=== PATIENT | male | born 1985 | race Caucasian/White ===

== ENCOUNTER 2022-07-17 15:34 | Emergency (ER) | payer OTHER, SELFPAY ==
[2022-07-17 15:44] VITALS: BP 137/69; PULSE 110; RESP 20; TEMP 36.4; O2SAT 97
--- NOTE | 2022-07-17 16:34 | ED.HA ---
HPI - Headache General Chief Complaint: Headache Stated Complaint: Headache Time Seen by Provider: 07/17/22 16:25 Source: patient, RN notes reviewed and old records reviewed Mode of arrival: ambulatory Limitations: no limitations History of Present Illness HPI Narrative: 37 year old male who presents to [facility] care with complaints of migraine headache recurring this past week with increase intensity this past hour. He reports that he has pain to his bilateral islam areas with throbbing and pressure and to base of his skull, denies any nausea or any photosensitivity. Patient reports that he has taken Imitrex without relief. Patient states that he has seen neurologist for his headache reports that it is not worse headache of his life. Patient states that he has a nerve problem in the back of his neck MD elicited complaint: migraine Pertinent past history: migraines Pain scale (0-10): 8 Treatments prior to arrival: acetaminophen, ibuprofen, migraine medication and other (caffeine) Related Data Home Medications Medication Instructions Recorded Confirmed atenolol 25 mg tablet 25 mg PO BID 07/17/22 07/17/22 docusate sodium 100 mg capsule See Rx Instructions .Route .COMPLEX 07/17/22 07/17/22 lisdexamfetamine 70 mg capsule 70 mg PO DAILY 07/17/22 07/17/22 (Vyvanse) lisinopril 10 mg tablet 10 mg PO DAILY 07/17/22 07/17/22 sumatriptan succinate 100 mg tablet See Rx Instructions .Route .COMPLEX 07/17/22 07/17/22 Allergies Allergy/AdvReac Type Severity Reaction Status Date / Time No Known Allergies Allergy Verified 07/17/22 15:54 Review of Systems Review of Systems: CONSTITUTIONAL: Denies fever, chills, or sweats. EYES: Denies visual changes, redness, or discharge. ENT: Denies rhinorrhea, congestion, sore throat, or otalgia. CARDIOVASCULAR: Denies chest pain, palpitations, or edema. RESPIRATORY: Denies cough or dyspnea. GASTROINTESTINAL: Denies abdominal pain, nausea, vomiting, or diarrhea. GENITOURINARY: Denies dysuria or hematuria. SKIN: Denies rash or itching. MUSCULOSKELETAL: Denies back pain, joint pain, or myalgia. NEUROLOGIC: Positive headache,denies any numbness, or weakness. PSYCHIATRIC: Reports history of anxiety or depression. All systems reviewed & are unremarkable except as noted in HPI and below PMFSH Past Medical History Medical History ADHD (attention deficit hyperactivity disorder) Anxiety and depression Borderline personality disorder Hypertension Migraine Social History Social History Living arrangements: with family Gender identity (if verbalized by the patient): Male Comments At time of signature, agree with nursing past medical, surgical, social and family history. There is no relevant family history pertinent to the presenting complaint Exam Narrative: GENERAL: Well-appearing, well-nourished, and in no acute distress. HEAD: Normocephalic, atraumatic. EYES: PERRLA and EOMI.no nystagmus ENT: Nares clear, no rhinorrhea or epistaxis. Mucous membranes moist.TN's normal throat pink with no swelling NECK: Supple.no lymphadenopathy CHEST: Clear to auscultation. No respiratory distress.SAO2 97% on room air HEART: Regular rate and rhythm. No murmur heard. Normal peripheral pulses. ABDOMEN: Soft, nontender, nondistended, normal active bowel sounds. EXTREMITIES: Normal range of motion. No edema. SKIN: Warm, dry, no rash. NEURO: No focal deficits. Alert and oriented x3.reports pain to bilateral temples and base of skull with no photophobia or nausea, cranial nerves intact, gait steady Course Course Emergency Course: Patient is aware of diagnosis, understands and agrees to treatment plan.? Anticipatory guidance given.? Patient agrees to follow-up as directed and is aware of reasons to seek care at the emergency department. Portions of this record may have been created with voice recognition
[2022-07-17] MEDS: KETOROLAC (*BKC) 60 MG/2 ML VIAL IM (16:47)
== END 2022-07-17 17:15 | disposition home or self-care (01) ==
PROVIDERS: Emergency Provider Registered Nurse; PCP Family Medicine
DX: G43.909 Migraine, unspecified, not intractable, without status migrainosus (principal); I10 Essential (primary) hypertension; F90.9 Attention-deficit hyperactivity disorder, unspecified type
CPT/HCPCS: 96372; 99213; G0463; J1885

== ENCOUNTER 2024-02-16 16:46 | Emergency (ER) | payer OTHER, SELFPAY ==
[2024-02-16 17:15] VITALS: BP 124/81; PULSE 86; RESP 16; TEMP 36.6; O2SAT 100
--- NOTE | 2024-02-16 18:30 | ED_ITS ---
HPI - URI/Sore Throat General Chief Complaint: Upper Respiratory Infection Stated Complaint: Body Aches/Shortness of Breath/Cough/Sore Throat Time Seen by Provider: 02/16/24 18:15 Source: patient Mode of arrival: ambulatory Limitations: no limitations History of Present Illness HPI Narrative: 39 year old male [facility] to [facility] care with complaints of 2 day duration MD elicited complaint: cough and sore throat Related Data Home Medications Medication Instructions Recorded Confirmed atenolol 25 mg tablet 25 mg PO BID 07/17/22 07/17/22 docusate sodium 100 mg capsule See Rx Instructions .Route .COMPLEX 07/17/22 07/17/22 lisdexamfetamine 70 mg capsule 70 mg PO DAILY 07/17/22 07/17/22 (Vyvanse) lisinopril 10 mg tablet 10 mg PO DAILY 07/17/22 07/17/22 sumatriptan succinate 100 mg tablet See Rx Instructions .Route .COMPLEX 07/17/22 07/17/22 bupropion HCl 100 mg tablet mg PO 02/16/24 clonazepam 0.5 mg tablet mg 02/16/24 ergocalciferol (vitamin D2) 1,250 02/16/24 mcg (50,000 unit) capsule naltrexone 50 mg tablet mg 02/16/24 serdexmethylphenidate 39.2 02/16/24 mg-dexmethylphenidate 7.8 mg capsule (Azstarys) sildenafil 100 mg tablet mg 02/16/24 topiramate 50 mg tablet mg 02/16/24 Allergies Allergy/AdvReac Type Severity Reaction Status Date / Time No Known Allergies Allergy Verified 02/16/24 17:45 Review of Systems Review of Systems: CONSTITUTIONAL: Denies malaise, chills, sweats, or fever. EYES: Denies visual changes, redness, or discharge. ENT: Reports rhinorrhea, congestion, sinus pain, otalgia and sore throat. CARDIOVASCULAR: Denies chest pain, palpitations, or edema. RESPIRATORY: Reports cough.? Denies dyspnea. GASTROINTESTINAL: Denies abdominal pain, nausea, vomiting, diarrhea SKIN: Denies rash or itching. MUSCULOSKELETAL: Denies myalgia. NEUROLOGIC: Denies headache. All systems reviewed & are unremarkable except as noted in HPI and below PMFSH Past Medical History Medical History ADHD (attention deficit hyperactivity disorder) Anxiety and depression Borderline personality disorder Hypertension Migraine Social History Social History Living arrangements: with family Gender identity (if verbalized by the patient): Male Comments At time of signature, agree with nursing past medical, surgical, social and family history. There is no relevant family history pertinent to the presenting complaint Exam Narrative: GENERAL: Well-appearing, well-nourished, and in no acute distress. HEAD: Normocephalic EYES: PERRLA, conjunctivae clear ENT: Nares clear, turbinates edematous and erythematous, clear discharge. Mucous membranes moist. TM pearly qureshi with dull light reflex bilaterally; no tragal tenderness. Oropharynx erythematous without lesions. Tonsils not enlarged and without exudate, no drooling, no hoarseness, no trismus, uvula midline. NECK: Supple. No lymphadenopathy CHEST: Clear to auscultation, breath sounds equal. No wheezing, rhonchi, rales, or stridor. No respiratory distress, speaks in full sentences. HEART: Regular rate and rhythm. No murmur heard. SKIN: Warm, dry, no rash. NEURO: Alert and oriented x3. PSYCH: Normal mood and affect Course Course Emergency Course: Patient is aware of diagnosis, understands and agrees to treatment plan.? Anticipatory guidance given.? Patient agrees to follow-up as directed and is aware of reasons to seek care at the emergency department. Portions of this record may have been created with voice recognition software Level of Care: Express Care Visit Vital Signs Vital signs: Vital Signs Temperature 36.6 C 02/16/24 17:15 Pulse Rate 86 02/16/24 17:15 Respiratory Rate 16 02/16/24 17:15 Blood Pressure 124/81 02/16/24 17:15 Pulse Oximetry 100 02/16/24 17:15 Oxygen Delivery Room Air 02/16/24 17:15 Temperature 36.6 C 02/16/24 17:15 Pulse Rate 86 02/16/24 17:15 Respiratory Rate 16 02/16/24 17:15 Blood Pressure 124/81 02/16/24 17:15 Pulse Oximetry 100 02/16/24 17:15 Oxygen Delivery Room Air 02/16/24 17:15 Reviewed MDM - URI/Sore Throat MDM Narrative Medical decision making narrative: Differential diagnosis considered: [place] virus, strep pharyngitis, allergic rhinitis, upper respiratory tract infection, sinusitis, rhinosinusitis, nasopharyngitis. viral pharyngitis, otitis media, otitis externa, pneumonia, bronchitis, viral cough syndrome, viral syndrome, and influenza.? Exam findings show no acute concerns or changes; patient is non-toxic appearing and is in no distress.? Patient is appropriate for outpatient treatment and follow-up. Lab Data Attestation: I reviewed the patient's lab results. Discharge Plan Discharge Clinical Impression: URI with cough and congestion Cough Qualifiers: Cough type: acute Qualified Code(s): R05.1 - Acute cough Patient Disposition: Home, Self-Care Condition: Stable Instructions: Antibiotic Form, Upper Respiratory Infection (ED), Acute Cough (ED) Additional Instructions: Increase fluids especially juices and water [id number] cough and cold medicine of your choice for your symptoms Cough tablets as directed for cough--do not bite, chew or suck on--swallow whole Zyrtec Claritin or Bernadette daily heat to the face 20-30 minutes 4-6 times a day for pain Salt water gargles, throat lozenges or throat sprays as desired Antibiotic as directed--finished the medication If your symptoms persist, change or worsen significantly before you can contact your personal physician then please, without delay, go to the emergency department for further evaluation. Follow-up with PCP in 7-10 days or sooner if needed Prescriptions: New amoxicillin 875 mg tablet 875 mg PO Q12H Qty: 20 0RF benzonatate 200 mg capsule 200 mg PO TID PRN (Reason: cough) Qty: 14 0RF No Action sumatriptan succinate 100 mg tablet See Rx Instructions .ROUTE .COMPLEX Rx Instructions: as prescribed atenolol 25 mg tablet 25 mg PO BID lisinopril 10 mg tablet 10 mg PO DAILY docusate sodium 100 mg capsule See Rx Instructions .ROUTE .COMPLEX Rx Instructions: as presccribed Vyvanse 70 mg capsule 70 mg PO DAILY ketorolac 10 mg tablet 10 mg PO Q6H PRN (Reason: pain) 5 Days Qty: 10 0RF naltrexone 50 mg tablet clonazepam 0.5 mg tablet bupropion HCl 100 mg tablet PO ergocalciferol (vitamin D2) 1,250 mcg (50,000 unit) capsule topiramate 50 mg tablet Azstarys 39.2 mg- 7.8 mg capsule sildenafil 100 mg tablet Follow-up/Referrals: Harms,Rickie Bustamante M.D. [Primary Care Provider] - Time of Disposition: 18:42 Quality [place] Coma Scale Eyes: Open Verbal: Oriented and Alert Motor: Follows Commands [place] Coma Total Score: 15
[2024-02-16 18:40] LABS: EDCOVIDSCREEN Negative (Negative); EDINFLUASCREEN Negative (Negative); EDINFLUBSCREEN Negative (Negative); EDSTREPNEGPOS1 Negative (Negative)
== END 2024-02-16 18:45 | disposition home or self-care (01) ==
PROVIDERS: Emergency Provider Registered Nurse; PCP Family Medicine
DX: J06.9 Acute upper respiratory infection, unspecified (principal); R05.1 Acute cough; Z20.822 Contact with and (suspected) exposure to COVID-19; I10 Essential (primary) hypertension; F90.9 Attention-deficit hyperactivity disorder, unspecified type
CPT/HCPCS: 87081; 87426; 87804; 87880; 99213; G0463